=== PATIENT | male | born 1965 | race African-American/Black ===

== ENCOUNTER 2019-07-09 13:41 | Emergency (ER) | payer BC ==
--- NOTE | 2019-07-09 14:31 | EDM.PDOC ---
ED HPI GENERAL MEDICAL PROBLEM - General Chief Complaint: General Stated Complaint: HEADACHE,PAIN IN SHOULDER Time Seen by Provider: 07/09/19 14:25 Source of Information: Reports: Patient - History of Present Illness INITIAL COMMENTS - FREE TEXT/NARRATIVE: HISTORY AND PHYSICAL: History of present illness: [Patient presents with right shoulder pain, he denies any injury or trauma began several days ago he has had multiple complaints of acid reflux the right shoulder girdle pain as well as intermittent headache Current right shoulder pain is 3 out of 10 nonradiating worsened by movement of the shoulder girdle I can reproduce symptoms with palpation over infraspinatus and the entire right trapezius distribution Headache is not present at current Reflux is worsened by tomato paste and Posta with tomato paste as well as chocolate also enjoys spicy food of all types and will be using Tylenol and icy hot patches for her shoulder I recommended Zantac and/or omeprazole and decrease triggers or eliminate triggers of acid reflux ] Review of systems: As per history of present illness and below otherwise all systems reviewed and negative. Past medical history: As per history of present illness and as reviewed below otherwise noncontributory. Surgical history: As per history of present illness and as reviewed below otherwise noncontributory. Social history: No reported history of drug or alcohol abuse. Family history: As per history of present illness and as reviewed below otherwise noncontributory. Physical exam: HEENT: Atraumatic, normocephalic, pupils reactive, negative for conjunctival pallor or scleral icterus, mucous membranes moist, throat clear, neck supple, nontender, trachea midline. Lungs: Clear to auscultation, breath sounds equal bilaterally, chest nontender. Heart: S1S2, regular, negative for clicks, rubs, or JVD. Abdomen: Soft, nondistended, nontender. Negative for masses or hepatosplenomegaly. Negative for costovertebral tenderness. Pelvis: Stable nontender. Genitourinary: Deferred. Rectal: Deferred. Extremities: Atraumatic, negative for cords or calf pain. Neurovascular unremarkable. Neuro: Awake, alert, oriented. Cranial nerves II through XII unremarkable. Cerebellum unremarkable. Motor and sensory unremarkable throughout. Exam nonfocal. Diagnostics: [Clinical ] Therapeutics: [Zantac Omeprazole Avoid triggers of acid reflux Tylenol] shoulder as well as IcyHot however we did discuss this may exacerbate reflux Establish primary care he has missed 2 days of work, Fabiola notes that he was seen today Impression: [musculo skeletal pain-traumatic] Headache resolved History of acid reflux Definitive disposition and diagnosis as appropriate pending reevaluation and review of above. right shoulder Pain Score (Numeric/FACES): 8 headache Pain Score (Numeric/FACES): 8 back Pain Score (Numeric/FACES): 8 - Related Data Allergies Allergy/AdvReac Type Severity Reaction Status Date / Time novoquine Allergy Rash Uncoded 05/19/18 01:25 Home Meds: Home Meds . [No Known Home Meds] 05/19/18 [History] Past Medical History - Past Health History Medical/Surgical History: Denies Medical/Surgical History HEENT History: Reports: None Cardiovascular History: Reports: None Respiratory History: Reports: None Gastrointestinal History: Reports: Hiatal Hernia Genitourinary History: Reports: None Musculoskeletal History: Reports: None Neurological History: Reports: None Psychiatric History: Reports: None Endocrine/Metabolic History: Reports: None Hematologic History: Reports: None Immunologic History: Reports: None Oncologic (Cancer) History: Reports: None Dermatologic History: Reports: None - Infectious Disease History Infectious Disease History: Reports: None - Past Surgical History Head Surgeries/Procedures: Reports: None GI Surgical History: Reports: Hernia, Abdominal Social & Family History - Family History Family Medical History: Noncontributory - Tobacco Use Smoking Status *Q: Never Smoker - Caffeine Use Caffeine Use: Reports: Coffee, Tea - Recreational Drug Use Recreational Drug Use: No ED ROS GENERAL - Review of Systems Review Of Systems: See Below ED EXAM, GENERAL - Physical Exam Exam: See Below Course - Vital Signs Last Recorded V/S: Last Vital Signs Temp Pulse 89 07/09/19 13:52 Resp 18 07/09/19 13:52 BP 121/89 07/09/19 13:52 Pulse Ox 97 07/09/19 13:52 Departure - Departure Time of Disposition: 14:29 Disposition: Home, Self-Care 01 Condition: Good Clinical Impression: Muscle spasm, Acid reflux - Discharge Information Referrals: PCP,None [Primary Care Provider] - Additional Instructions: Avoid triggers of acid reflux which in your case would include tomato sauce spicy foods in general ibuprofen Tylenol and chocolate The counter symptomatic treatments include Zantac 150 milligrams p.o. daily as needed Omeprazole 40 mg p.o. daily as needed Above medications can be used together For shoulder ibuprofen or Tylenol as icy hot patches as discussed , this may increase acid reflux as well Follow-up and establish primary care Provide note for patient's employer that he was seen today through the emergency room [facility] [address] [place] [id number] The following information is given to patients seen in the emergency department who are being discharged to home. This information is to outline your options for follow-up care. We provide all patients seen in our emergency department with a follow-up referral. The need for follow-up, as well as the timing and circumstances, are variable depending upon the specifics of your emergency department visit. If you don't have a primary care physician on staff, we will provide you with a referral. We always advise you to contact your personal physician following an emergency department visit to inform them of the circumstance of the visit and for follow-up with them and/or the need for any referrals to a consulting specialist. The emergency department will also refer you to a specialist when appropriate. This referral assures that you have the opportunity for follow-up care with a specialist. All of these measure are taken in an effort to provide you with optimal care, which includes your follow-up. Under all circumstances we always encourage you to contact your private physician who remains a resource for coordinating your care. When calling for follow-up care, please make the office aware that this follow-up is from your recent emergency room visit. If for any reason you are refused follow-up, please contact the [facility] emergency department at and asked to speak to the emergency department charge nurse. Sepsis Event Note - Evaluation Sepsis Screening Result: No Definite Risk - Focused Exam Vital Signs: Vital Signs Pulse Resp BP Pulse Ox 07/09/19 13:52 89 18 121/89 97 Date Exam was Performed: 07/09/19 Time Exam was Performed: 14:25
== END 2019-07-09 14:50 | disposition home or self-care (01) ==
LOC: MW.ED 13:41
DX: M62.838 Other muscle spasm (principal); K21.9 Gastro-esophageal reflux disease without esophagitis; Z88.8 Allergy status to other drugs, medicaments and biological substances
CPT/HCPCS: 99283

== ENCOUNTER 2021-09-20 15:22 | Emergency (ER) | payer BC, MEDICAID ==
[2021-09-20] MEDS ORDERED: Ketorolac 60 MG/2 ML SDV IM ONE (17:26)
[2021-09-20] MEDS ORDERED: Sulfamethoxazole/Trimethoprim 800-160 MG Tab PO STA (19:16)
== END 2021-09-20 19:39 | disposition home or self-care (01) ==
LOC: MW.ED 15:22
DX: M19.042 Primary osteoarthritis, left hand (principal); M19.041 Primary osteoarthritis, right hand; M54.50 Low back pain, unspecified
CPT/HCPCS: 73120; 96372; 99283; A9270; J1885

== ENCOUNTER 2022-05-08 00:02 | Emergency (ER) | payer MEDICAID ==
[2022-05-08] MEDS ORDERED: Aspirin 81 MG Tab.Chew PO ONE (00:21)
[2022-05-08 01:19] LABS: CARBON DIOXIDE,CO2 26.3 mmol/L (21.0-32.0); POTASSIUM,K 4.1 mmol/L (3.5-5.1)
== END 2022-05-08 05:00 | disposition home or self-care (01) ==
LOC: MW.ED 00:02
DX: R07.9 Chest pain, unspecified (principal); E11.9 Type 2 diabetes mellitus without complications; Z79.84 Long term (current) use of oral hypoglycemic drugs; Z88.8 Allergy status to other drugs, medicaments and biological substances
CPT/HCPCS: 36415; 71045; 71045-26; 80053; 82947; 84484; 85025; 85379; 93005; 99285; A9270-GY

== ENCOUNTER 2022-10-04 12:50 | Emergency (ER) | payer MEDICAID ==
[2022-10-04] MEDS ORDERED: Sodium Chloride 0.9% 1,000 ML IV ONE ×3 (13:22→14:38)
[2022-10-04 14:16] LABS: CARBON DIOXIDE,CO2 26.2 mmol/L (21.0-32.0)
[2022-10-04 14:30] LABS: HEMOGLOBIN A1C >14.0 %
[2022-10-04] MEDS ORDERED: Insulin Regular, Human 100 Units/ML 10 ML Vial IVPUSH ONE (14:37)
== END 2022-10-04 16:40 | disposition home or self-care (01) ==
LOC: MW.ED 12:50
DX: E11.65 Type 2 diabetes mellitus with hyperglycemia (principal); Z79.4 Long term (current) use of insulin; Z79.84 Long term (current) use of oral hypoglycemic drugs; Z79.899 Other long term (current) drug therapy; Z88.8 Allergy status to other drugs, medicaments and biological substances
CPT/HCPCS: 36415; 80053; 81003; 82009; 82803; 82947; 83036; 83735; 84484; 85025; 93005; 96360; 96361; 99283; J7030; 93010; 99284; J1815-GY

== ENCOUNTER 2023-10-17 06:02 | Emergency (ER) | payer SELFPAY ==
[2023-10-17 07:37] LABS: BASOPHILS ABSOLUTE AUTO 0.03 K/uL (0.00-0.20); BASOPHILS PERCENT AUTO 0.5 % (0.0-1.0); EOSINOPHILS ABSOLUTE AUTO 0.07 K/uL (0.00-0.45); EOSINOPHILS PERCENT AUTO 1.2 % (0.0-6.0); HEMATOCRIT 43.3 % (42.0-52.0); HEMOGLOBIN 14.8 g/dL (14.0-18.0); IMMATURE GRAN ABSOLUTE AUTO 0.01 K/uL (0.00-0.05); IMMATURE GRAN PERCENT AUTO 0.2 % (0.0-0.4); LYMPHOCYTES PERCENT AUTO 37.8 % (24.0-44.0); MEAN CORPUSCULAR HEMOGLOBIN 29.1 pg (28.0-32.0); MEAN CORPUSCULAR HGB CONC 34.2 g/dL (32.0-36.0); MEAN CORPUSCULAR VOLUME 85.2 fL (83.0-99.0); MONOCYTES ABSOLUTE AUTO 0.34 K/uL (0.00-0.80); MONOCYTES PERCENT AUTO 5.8 % (0.0-8.0); NEUTROPHILS ABSOLUTE AUTO 3.17 K/uL (1.80-7.70); NEUTROPHILS PERCENT AUTO 54.5 % (41.0-71.0); PLATELET COUNT,PLT 205 K/uL (150-400); RED BLOOD CELL COUNT 5.08 M/uL (4.52-5.90); WHITE BLOOD CELL COUNT,WBC 5.82 K/uL (3.9-11.3)
[2023-10-17 07:45] LABS: A/G RATIO 0.7 (0.9-1.6); ALBUMIN 3.7 g/dL (3.4-5.0); BILIRUBIN TOTAL 0.3 mg/dL (0.2-1.0); CARBON DIOXIDE,CO2 29.4 mmol/L (21.0-32.0); CREATININE 1.4 mg/dL (0.8-1.3); EST CRCL DRUG DOSING (CG) 53.12 mL/min; POTASSIUM,K 4.4 mmol/L (3.5-5.1); PROTEIN TOTAL,TP 8.7 g/dL (6.4-8.2)
== END 2023-10-17 08:35 | disposition home or self-care (01) ==
LOC: MW.ED 06:02
DX: E11.65 Type 2 diabetes mellitus with hyperglycemia (principal); Z88.8 Allergy status to other drugs, medicaments and biological substances
CPT/HCPCS: 36415; 80053; 82947; 85025; 99283; 99284

== ENCOUNTER 2024-05-13 16:22 | Emergency (ER) | payer BC ==
[2024-05-13] MEDS: Ibuprofen 800 MG Tab PO ONE (17:08)
== END 2024-05-13 18:37 | disposition home or self-care (01) ==
LOC: MW.ED 16:22
DX: M54.50 Low back pain, unspecified (principal); E11.9 Type 2 diabetes mellitus without complications; Z79.899 Other long term (current) drug therapy; Z88.8 Allergy status to other drugs, medicaments and biological substances; Z75.8 Other problems related to medical facilities and other health care
CPT/HCPCS: 72100; 99283; A9270